=== PATIENT | female | born 1985 | race Caucasian/White ===

== ENCOUNTER 2023-06-05 09:41 | Outpatient (CLI) | payer BC, SELFPAY | END 2023-06-05 09:42 | disposition home or self-care (01) | PROVIDERS: Visit Provider Obstetrics & Gynecology | DX: N93.9 Abnormal uterine and vaginal bleeding, unspecified (principal) | CPT/HCPCS: 84146; 84443 ==

== ENCOUNTER 2023-06-12 07:04 | Outpatient (CLI) | payer BC, SELFPAY ==
--- NOTE | 2023-06-12 07:15 | CRLHL7_ITS ---
For Patients: As a result of the Century Cures Act, medical imaging exams and procedure reports are released immediately into your electronic medical record. You may view this report before your referring provider. If you have questions, please contact your health care provider. CLINICAL HISTORY: ABNORMAL UTERINE AND VAGINAL BLEEDING TECHNIQUE: 2D murphy scale and color Doppler images were acquired of the pelvis using a transvaginal approach. FINDINGS: On transvaginal imaging, the myometrium has a normal uniform echotexture. The uterus measures 8.4 x 5.4 x 6.0 cm. The endometrium measures 9 millimeters in thickness. Two hyperechoic nodular foci within the endometrium measuring 9 x 4 x 6 millimeters and 8 x 4 x 5 millimeters. No endometrial fluid. The left ovary measures 3.1 x 1.6 x 2.1 cm in size and the right ovary measures 4.6 x 3.2 x 2.8 cm. The ovaries demonstrate normal arterial and venous blood flow on color Doppler analysis. There are no suspicious fluid collections within the cul-de-sac. Collapsing hemorrhagic right ovarian cyst noted measuring 2.2 x 1.6 x 1.6 cm. IMPRESSION: Two endometrial polyps are suspected measuring 9 millimeters and 8 millimeters. Dictated by Nikhil Shaffer MD @ 06/12/2023 1:30:21 PM (Electronically Signed)
== END 2023-06-12 07:05 | disposition home or self-care (01) ==
PROVIDERS: Visit Provider Obstetrics & Gynecology
DX: N93.9 Abnormal uterine and vaginal bleeding, unspecified (principal); N84.0 Polyp of corpus uteri
CPT/HCPCS: 76830

== ENCOUNTER 2023-08-05 09:04 | Day surgery (SDC) | payer BC, SELFPAY ==
[2023-08-05] VITALS (8 sets, daily range): BP systolic 70–141; BP diastolic 44–84; PULSE 55–81; RESP 12–16; TEMP 36.2–36.7; O2SAT 95–100; BMI 30.5
[2023-08-05] MEDS: LACTATED RINGERS 1000 ML 1,000 ML 100 ML IV (09:30)
[2023-08-05 09:35] LABS: Ur HCG Qualitative* Negative (Negative)
[2023-08-05] MEDS: SODIUM CHLORIDE 0.9 % (FLUSH) 10 ML SYRINGE IVF (09:37)
[2023-08-05 09:44] LABS: Hemoglobin* 14.5 gm/dL (12.0-16.0)
[2023-08-05] MEDS: LIDOCAINE 1 % PF 30 ML INJECTION (10:10)
--- NOTE | 2023-08-05 10:30 | W.PM.H&PU ---
History & Physical Update History & Physical Update H&P Reviewed and patient assessed: No changes noted
--- NOTE | 2023-08-05 10:39 | W.ANESCHARGE ---
Anesthesia Charges Start Date/Time Anesthesia Start Date: 08/05/23 Anesthesia Start Time: 09:43 Stop Date/Time Anesthesia Stop Date: 08/05/23 Anesthesia Stop Time: 10:40
[2023-08-05] MEDS: KETOROLAC 30 MG/ML inj IVP (10:54)
[2023-08-05] MEDS: ONDANSETRON 2 MG/ML inj 4 MG IVP (11:04)
--- NOTE | 2023-08-05 11:07 | P.GYNPRC_ITS ---
Procedure Note Time Seen by Provider: 11:07 Date of procedure: 08/05/23 Procedure: Preoperative diagnosis: Emerald is a 38 yo with abnormal uterine bleeding - menorrhagia, likely secondary to endometrial polyps. Postoperative diagnosis: Same. Procedure: (1) Hysteroscopy (2) Dilation and curettage/polypectomy (3) Endometrial ablation (4) Mirena IUD insertion Anesthesia: Mac and paracervical block. Surgeon: Maria G Cloud MD Assist: None Estimated blood loss: <5 mL IV Fluid: 900 mL UOP: 50 cc Fluid deficits: 80 cc Specimen: Endometrial curettings, sent to path. Findings: On exam under anesthesia: The cervix and vagina appear normal. The uterus was retroverted position, approximately 6 week size, mobile and without masses or nodularity palpable. Adnexa were without mass or fullness palpable bilaterally. On hysteroscopy: Normal bilateral tubal ostia, possible anterior sessile polyps. No other abnormalities noted. The uterus sounded to 8 cm. Cervical length 3.5 cm. Cavity length: 4.5. Procedure: Emerald was taken to the operating room where conscious sedation was found to be adequate. She was placed in a dorsal lithotomy position and an exam under anesthesia was performed with the findings stated above. She was then prepped and draped in a normal sterile manner. An a bivalve is sterile speculum was placed in the vaginal canal. A paracervical block was placed using 1% Lidocaine with epi: 5 mL were injected at the 4 and 8 o'clock positions on the cervix. A long Allis clamp was placed on the anterior lip of the cervix. The cervix was then dilated to Hegar 6. Uterus sounded to 8 cm. The cervix measured 3.5 cm. There for the cavity length was 4.5 cm. The Truclear hysteroscope was advanced into the uterus. A diagnostic hysteroscopy performed with normal saline as the insufflation medium. Findings are stated above. The Truclear i ncisor was then advanced into the camera. And the curettage performed with this incisor. The cavity appeared normal once the curettage was performed completed. The hysteroscope was removed. The cervix was then dilated to Hegar 8. The Rubi device was advanced into the uterus. The cavity check was completed and the ablation took place over 2 min. The Rubi was removed, the hysteroscope readvanced to document ablation of the entire cavity. The hysteroscope was then removed. Attention was then turned towards Mirena IUD insertion. The IUD is loaded into the insertion tube, inserted to the sounded depth, and the IUD is deployed. Insertion tube was removed. Strings are trimmed to 3 cm. There were no complications with insertion. Patient tolerated procedure well. The Allis clamp removed from the anterior lip of the cervix. Excellent hemostasis was noted. The patient tolerated this procedure well. Sponge, lap and instrument counts were correct x2 at the end of the procedure and the patient was taken to the recovery area in stable condition. Surgical debrief performed and specimen is reviewed.
[2023-08-05] MEDS: OXYCODONE 5 MG TABLET PO (11:24)
--- NOTE | 2023-08-05 11:37 | W.ANESCHARGE ---
Anesthesia Charges Start Date/Time Anesthesia Start Date: 08/05/23 Anesthesia Start Time: 09:43 Stop Date/Time Anesthesia Stop Date: 08/05/23 Anesthesia Stop Time: 10:40
== END 2023-08-05 11:58 | disposition home or self-care (01) ==
PROVIDERS: PCP Nurse Practitioner Family; Visit Provider Obstetrics & Gynecology
PROC: 0UF98ZZ Fragmentation in Uterus, Via Natural or Artificial Opening Endoscopic (ICD-10-PCS; CPT 58558; principal; 2023-08-05 10:00)
DX: N92.0 Excessive and frequent menstruation with regular cycle (principal); N84.0 Polyp of corpus uteri; N93.8 Other specified abnormal uterine and vaginal bleeding; Z30.430 Encounter for insertion of intrauterine contraceptive device
CPT/HCPCS: 58558; 58563; 58300; 00952; 36415; 81025; 85018; 86850; 86900; 86901; 88305; A9270; J1885; J2001; J2250; J2405; J2704; J3010; J7120; J7298

== ENCOUNTER 2024-08-04 15:42 | Outpatient (CLI) | payer OTHER, SELFPAY ==
[2024-08-04 23:02] LABS: Strep A DNA Probe* NOT DETECTED (Not Detectd)
== END 2024-08-04 15:43 | disposition home or self-care (01) ==
LOC: KYNREF 15:42
PROVIDERS: PCP Nurse Practitioner Family; Visit Provider Nurse Practitioner Family
DX: J02.9 Acute pharyngitis, unspecified (principal)
CPT/HCPCS: 87651